=== PATIENT | male | born 1960 ===

== ENCOUNTER 2016-06-22 06:27 | Day surgery (SDC) | payer BC, MEDICARE ==
[2016-06-22 07:00] LABS: ADD MANUAL DIFF? NO
[2016-06-22] MEDS ORDERED: Lidocaine 1% Inj (20ml) ONE (07:12)
[2016-06-22] MEDS ORDERED: Bupivacaine 0.5% Inj(30mL) ONE (07:12)
[2016-06-22 07:13] VITALS: BMI 25.9
[2016-06-22 07:15] LABS: CALCIUM 9.1 mg/dL (8.4-10.5)
[2016-06-22 07:20] LABS: BASO # 0.04 K/mm3 (0.0-2.0); BASO % 0.7 % (0.0-3.0); EOS # 0.2 (0.0-0.7); EOS % 3.6 % (1.5-5.0); GRAN # 3.33 (1.4-6.5); GRAN % 59.8 % (50.0-68.0); HEMATOCRIT 30.4 % (42.0-52.0); LYMPH # 1.7 (1.2-3.4); MEAN CELL VOLUME 93.3 fL (80.0-105.0); MEAN CORPUSCULAR HGB CONC 33.2 g/dl (31.0-37.0); MEAN PLATELET VOLUME 9.1 fl (7.0-11.0); MONO # 0.3 (0.1-0.6); MONO % 5.9 % (1.0-6.0); PLATELET COUNT 368 10^3/uL (120.0-450.0); RED CELL DISTRIBUTION WIDTH 13.5 % (11.5-14.5); WHITE BLOOD COUNT 5.6 10^3/ul (4.5-11.0)
[2016-06-22 07:22] LABS: INR 1.05 (0.93-1.08); PARTIAL THROMBOPLASTIN TIME 30.2 Seconds (23.7-30.8)
[2016-06-22] MEDS ORDERED: Propofol 10 mg/ml Inj (20 ML) ONE (08:04)
[2016-06-22] MEDS ORDERED: Midazolam 2 MG/2 ML VIAL ONE (08:04)
[2016-06-22] MEDS ORDERED: Rocuronium 10 mg/ml (5 ml) ONE (08:07)
[2016-06-22] MEDS ORDERED: Etomidate 20 mg/10ml Inj IV ONE (08:07)
[2016-06-22] MEDS ORDERED: Phenylephrine 10 mg/ml Inj ONE (08:08)
[2016-06-22] MEDS ORDERED: ePHEDrine 50 mg/ml Inj ONE (08:34)
[2016-06-22] MEDS ORDERED: Neostigmine Methylsulfate 3mg/3ml Syringe IV ONE (09:28)
[2016-06-22] MEDS ORDERED: HYDROmorphone 0.5 mg/0.5 ml ISec IVP PRN (09:46)
[2016-06-22] MEDS ORDERED: Oxycodone/Acetaminophen 5/325 mg Tab PO PRN (09:50)
--- NOTE | 2016-06-22 09:52 | PCM.SURG1 ---
Surgeon's Initial Post Op Note - Surgeon's Notes Surgeon: Dr. Davies Breeder Service Technician: Kyleigh Peterson PGY1 Type of Anesthesia: General Endo Pre-Operative Diagnosis: ESRD needing HD Operative Findings: Old catheter Post-Operative Diagnosis: Same Operation Performed: Removal of R IJ HD catheter. Insertion of L IJ HD cath Specimen/Specimens Removed: RIJ HD cath Estimated Blood Loss: EBL {In ML}: 5 Blood Products Given: N/A Drains Used: No Drains Post-Op Condition: Good Date of Surgery/Procedure: 06/22/16 Time of Surgery/Procedure: 09:51
[2016-06-22] MEDS ORDERED: Sodium Chloride 0.9% 1,000 ML IV SCH (10:00)
[2016-06-22 11:07] VITALS: PULSE 75; RESP 20; TEMP 97.4; O2SAT 98
[2016-06-22 11:34] VITALS: BP 121/84
[2016-06-22] MEDS ORDERED: Oxycodone/Acetaminophen 5/325 mg Tab ONE (11:58)
--- NOTE | 2016-06-22 19:45 | OP ---
PROCEDURE DATE: 06/22/2016 PREOPERATIVE DIAGNOSIS: Infected tunneled dialysis catheter, sepsis and end-stage renal disease. POSTOPERATIVE DIAGNOSIS: Infected tunneled dialysis catheter, sepsis and end-stage renal disease. PROCEDURE PERFORMED: 1. Removal of the old infected hemodialysis catheter. 2. Placement of the new hemodialysis tunneled catheter under fluoroscopy guidance. 3. Ultrasound guidance for access to the internal jugular vein on the left side. SURGEON: Dr. Davies. AIR DEFENSE ARTILLERY SENIOR SERGEANT: Dr. Peterson. ANESTHESIOLOGIST: Dr. Holley. ANESTHESIA: General endotracheal anesthesia. ESTIMATED BLOOD LOSS: Minimal. SPECIMEN: Tip of the old catheter for cultures. INDICATION: The patient is a 56-year-old male with history of end-stage renal disease on hemodialysi s via tunneled catheter who had a positive culture and sepsis secondary to the infection of the paty ter. The patient was brought in for removal of the old catheter and placement of the new catheter at the new site. DESCRIPTION OF PROCEDURE: The patient was brought to the operating room and placed on operating tabl e in supine position. The patient was connected to the EKG, blood pressure and pulse oximeter monito rs. The patient then underwent general endotracheal anesthesia, was prepped and draped in usual ster ile fashion. First, timeout procedure took place in the room where everybody agreed as the patient's identity, fior gnosis and procedure. First, using lidocaine mixed with Marcaine after the area of the right chest was cleaned with Betadin e. The area was prepped and lidocaine was injected around the exit site of the catheter. The cathet er was then pulled down and the fibrous attachment to the calf of the catheter were removed and the c atheter was removed completely. The tip of the catheter was then sent as a specimen for cultures. A pressure dressing was applied to that wound. Now, our attention was turned to the left neck where first under the ultrasound guidance, the left in ternal jugular vein was evaluated and then under the ultrasound access to the left internal jugular v ein was obtained. Once the guidewire was passed down, the fluoroscopy was used in order to observe t he guidance of the guidewire which went all the way down to the inferior vena cava. At this point a ____ dialysis catheter was measured and brought out under the skin from the left chest on to the exit site of the left neck. The dilator was used over the guidewire in order to dilate the insertion poi nt to the vein and then a dilator with the sheath were placed over the guidewire into the left planning intern al jugular vein and pushed all the way down to the superior vena cava. Next, the dilator was removed through the guidewire and the catheter was passed via the sheath into the superior vena cava. The t ip of it was visualized with fluoroscopy in the superior vena cava. Next, the catheter was flushed w ith heparinized saline. There was excellent pullback of blood from both arterial and venous port. Once the catheter was flushed then additionally flushed with 2 mL of 1000 mL of heparin for each of t he ports. The incisions were then closed using 4-0 Monocryl. The catheter itself was sutured to the skin using 3-0 nylon. Sterile Dermabond dressing was applied to all the wounds. The patient tolera ne the procedure well and without complications. The patient was awakened and transferred to [facility] room for further observation. Joselito Davies MD cc: [id number] TT: 06/22/2016 19:44:38 jn
--- NOTE | 2016-06-23 12:23 | RAD ---
HISTORY: in PACU. L IJ HD insertion COMPARISON: 06/01/2016 FINDINGS: LUNGS: No active pulmonary disease. PLEURA: No significant pleural effusion identified, no pneumothorax apparent. CARDIOVASCULAR: Normal. OSSEOUS STRUCTURES: No significant abnormalities. VISUALIZED UPPER ABDOMEN: Normal. OTHER FINDINGS: There is a left internal jugular dialysis catheter that terminates in the superior vena cava. No pneumothorax IMPRESSION: No active disease.
--- NOTE | 2016-06-23 15:04 | RAD ---
PROCEDURE: Fluoroscopy up to 1 hour HISTORY: INSERTION DIALYSIS CATHETER COMPARISON: TECHNIQUE: Fluoroscopy was provided in the operating room. 5 minutes and 46 seconds of fluoroscopy time were utilized. 4 images were submitted FINDINGS: There is a left internal jugular dialysis catheter that terminates in the SVC. IMPRESSION: As above
== END 2016-06-22 12:45 | disposition home or self-care (01) ==
LOC: SDS 06:27
PROVIDERS: ATTEND General Practice
DX: T82.7XXA Infection and inflammatory reaction due to other cardiac and vascular devices, implants and grafts, initial encounter (principal); I12.0 Hypertensive chronic kidney disease with stage 5 chronic kidney disease or end stage renal disease; E11.22 Type 2 diabetes mellitus with diabetic chronic kidney disease; N18.6 End stage renal disease; Z99.2 Dependence on renal dialysis; I25.10 Atherosclerotic heart disease of native coronary artery without angina pectoris; I73.9 Peripheral vascular disease, unspecified; D64.9 Anemia, unspecified; Y84.1 Kidney dialysis as the cause of abnormal reaction of the patient, or of later complication, without mention of misadventure at the time of the procedure; Y84.8 Other medical procedures as the cause of abnormal reaction of the patient, or of later complication, without mention of misadventure at the time of the procedure
CPT/HCPCS: 36415; 36558; 36589; 71010; 76000; 76937; 77001; 80048; 85025; 85610; 85730; 87070; J0690; J1170; J1644 ×2; J2001; J2250; J2370; J2405; J2704; J2710; J2765; J3010; J7040

== ENCOUNTER 2016-08-01 06:17 | Day surgery (SDC) | payer MEDICARE, BC ==
[2016-07-25 09:55] VITALS: BMI 25.8
[2016-08-01 06:59] LABS: ADD MANUAL DIFF? NO
[2016-08-01 07:07] LABS: BASO # 0.02 K/mm3 (0.0-2.0); BASO % 0.3 % (0.0-3.0); EOS # 0.2 (0.0-0.7); EOS % 2.5 % (1.5-5.0); GRAN # 3.82 (1.4-6.5); GRAN % 60.8 % (50.0-68.0); HEMATOCRIT 38.6 % (42.0-52.0); LYMPH # 1.9 (1.2-3.4); LYMPH % 29.7 % (22.0-35.0); MEAN CELL VOLUME 93.9 fL (80.0-105.0); MEAN CORPUSCULAR HEMOGLOBIN 31.4 pg (25.0-35.0); MEAN CORPUSCULAR HGB CONC 33.4 g/dl (31.0-37.0); MONO # 0.4 (0.1-0.6); MONO % 6.7 % (1.0-6.0); PLATELET COUNT 328 10^3/uL (120.0-450.0); RED CELL DISTRIBUTION WIDTH 13.8 % (11.5-14.5); WHITE BLOOD COUNT 6.3 10^3/ul (4.5-11.0)
[2016-08-01 07:16] LABS: ALB/GLOB RATIO 1.2 (1.1-1.8); BILIRUBIN,TOTAL 0.8 mg/dL (0.2-1.3); CALCIUM 9.8 mg/dL (8.4-10.5); INR 1.04 (0.93-1.08); PARTIAL THROMBOPLASTIN TIME 31.5 Seconds (23.7-30.8); POTASSIUM 4.5 mmol/L (3.6-5.0); TOTAL PROTEIN 8.1 g/dL (5.8-8.3)
[2016-08-01] MEDS ORDERED: Lidocaine 1% Inj (20ml) ONE (07:35)
[2016-08-01] MEDS ORDERED: Liquid Adhesive TOP ONE (07:35)
[2016-08-01] MEDS ORDERED: Bupivacaine 0.5% Inj(30mL) ONE (07:35)
[2016-08-01] MEDS ORDERED: Propofol 10 mg/ml Inj (20 ML) ONE (07:38)
[2016-08-01] MEDS ORDERED: Midazolam 2 MG/2 ML VIAL ONE (07:38)
[2016-08-01] MEDS ORDERED: ePHEDrine 50 mg/ml Inj ONE (08:02)
[2016-08-01] MEDS ORDERED: Phenylephrine 10 mg/ml Inj ONE (08:02)
[2016-08-01] MEDS ORDERED: Sevoflurane - Inhalation Anesthetic Liq (250 ml) ONE (08:06)
--- NOTE | 2016-08-01 08:59 | RAD ---
HISTORY: PRE-OP COMPARISON: 06/22/2016 FINDINGS: LUNGS: No active pulmonary disease. PLEURA: No significant pleural effusion identified, no pneumothorax apparent. CARDIOVASCULAR: Tunneled left central venous dialysis catheter. Normal heart size. No congestive change. OSSEOUS STRUCTURES: No significant abnormalities. VISUALIZED UPPER ABDOMEN: Normal. OTHER FINDINGS: None. IMPRESSION: No active disease.
--- NOTE | 2016-08-01 10:19 | PCM.SURG1 ---
Surgeon's Initial Post Op Note - Surgeon's Notes Surgeon: Keke Singing Teacher: PGY3 Type of Anesthesia: General Endo Pre-Operative Diagnosis: ESRD Operative Findings: see op note Post-Operative Diagnosis: ESRD Operation Performed: 1. L arm arteriovenous fistula creation. 2. Vein mapping Specimen/Specimens Removed: N/A Estimated Blood Loss: EBL {In ML}: 5 Blood Products Given: N/A Drains Used: No Drains Post-Op Condition: Good Date of Surgery/Procedure: 08/01/16 Time of Surgery/Procedure: 07:40
--- NOTE | 2016-08-01 10:51 | OP ---
PROCEDURE DATE: 08/01/2016 PREOPERATIVE DIAGNOSIS: End-stage renal disease. POSTOPERATIVE DIAGNOSIS: End-stage renal disease. PROCEDURE PERFORMED: 1. Venous mapping of the left upper arm veins. 2. Attempted creation of AV fistula in the left wrist and actual creation of the AV fistula in the l eft upper arm between the cephalic vein and brachial artery. SURGEON: Dr. Davies. CONCRETE HOPPER OPERATOR: Dr. Galaviz. ANESTHESIOLOGIST: Dr. Copeland. ANESTHESIA: General LMA anesthesia. ESTIMATED BLOOD LOSS: Minimal. SPECIMEN: None. INDICATION: The patient is a 56-year-old male with history of end-stage renal disease, on dialysis v ia the left subclavian vein tunneled catheter. The patient is in need of dialysis and was brought in for a creation of AV fistula. DESCRIPTION OF PROCEDURE: The patient was brought to the operating room and placed on the operating table in supine position. The patient was connected to EKG, blood pressure and pulse oximeter monito rs. The patient then underwent general LMA anesthesia, was prepped and draped in usual sterile fashi on. First, a standard timeout procedure took place placed and everybody in the room agreed as to the rich ent's identity, diagnosis and procedure to be performed. Using a venous Doppler, the course of the cephalic vein from the wrist up to the axilla was marked. All the side branches were carefully marked as well. The vessel size in the upper arm was about 4 mm in the mid upper arm and about 4 mm in the antecubital fossa and about 3.5 to 3 running down the for earm and about 3 mm at the wrist. At that point, I considered creating AV fistula in the wrist in or marizol to save the upper arm in case the future access is needed. Given that, we proceeded with careful ly infiltrating the left wrist with lidocaine. I made a transverse incision. The incision was rosalia ed through subcutaneous areolar tissue and the vein was exposed. The vein appeared to contain severa l small branches and web-like dilatations which after dissection of it and clearing up of the surroun ding tissues, it appeared that the vein was fairly tortuous and possibly would be a difficult AV fist tj given the fact that the artery was about 2.5 to 3 mm in diameter as well. Given the high chance of failure, I proceeded to abort this portion of the procedure and closed the wound using 3-0 Vicryl and 4-0 Monocryl. My attention was then turned to the antecubital fossa where the area of the transv erse incision was infiltrated with lidocaine mixed with Marcaine and a careful dissection was done in order to dissect down to the cephalic vein. The side branches of the cephalic vein were taken down and the brachial artery was also exposed directly adjacent to the vein. Once this was done, I then t ransected the cephalic vein in the proximal end and elevated the artery on 2 vessel loops. The vein was flushed with heparinized saline. The patient was heparinized with 4000 units of heparin. Once 2 minutes passed, we proceeded with clamping the brachial artery and doing a longitudinal arteriotomy and created a direct anastomosis between the cephalic vein and the brachial artery for about 1.5 cm o f the length. Once this was completed, the forward flow was established the fistula after venting of the anastomosis and the forward flow was established. There was good palpable thrill in the proxima l one-third of the vein. I then proceeded with irrigation of the wound. There was excellent hemosta sis. The wound was closed in layers using 3-0 Vicryl for deep dermal layer and 4-0 Monocryl for skin . A sterile Dermabond dressing was applied to both wounds. The patient tolerated the procedure well and there were no complications. The patient was awakened and transferred to recovery room for furt her observation. Joselito Davies MD cc: [id number] TT: 08/01/2016 10:50:29 ks
[2016-08-01 11:25] VITALS: TEMP 98
[2016-08-01 12:38] VITALS: BP 152/86; PULSE 83; RESP 20; O2SAT 98
== END 2016-08-01 12:55 | disposition home or self-care (01) ==
LOC: SDS 06:17
PROVIDERS: ATTEND General Practice
DX: I12.0 Hypertensive chronic kidney disease with stage 5 chronic kidney disease or end stage renal disease (principal); E11.22 Type 2 diabetes mellitus with diabetic chronic kidney disease; N18.6 End stage renal disease; I25.10 Atherosclerotic heart disease of native coronary artery without angina pectoris; I73.9 Peripheral vascular disease, unspecified; D64.9 Anemia, unspecified
CPT/HCPCS: 36415; 36821; 71010; 80053; 85025; 85610; 85730; G0365; J0690; J1644 ×2; J2001; J2250; J2370; J2405; J2704; J3010; J7030

== ENCOUNTER 2018-05-10 11:06 | Inpatient (IN) | payer MEDICARE, BC | END 2018-05-13 18:00 | disposition home or self-care (01) | LOC: 3RNO 05-12 11:14 → ED 11:06 → ERH 13:06 → 2RNO 18:37 ==